=== PATIENT | male | born 1990 | race Caucasian/White ===

== ENCOUNTER 2017-11-15 11:46 | Emergency (ER) | payer OTHER ==
[2017-11-15] MEDS ORDERED: Ibuprofen 600 MG Tab PO ONE (12:20)
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
== END 2017-11-15 12:47 | disposition home or self-care (01) ==
LOC: JD.ED 11:46
DX: S16.1XXA Strain of muscle, fascia and tendon at neck level, initial encounter (principal); S46.911A Strain of unspecified muscle, fascia and tendon at shoulder and upper arm level, right arm, initial encounter; S56.912A Strain of unspecified muscles, fascia and tendons at forearm level, left arm, initial encounter; F17.210 Nicotine dependence, cigarettes, uncomplicated; V53.5XXA Driver of pick-up truck or van injured in collision with car, pick-up truck or van in traffic accident, initial encounter
CPT/HCPCS: 99284; A9270; 99283

== ENCOUNTER 2018-01-11 11:54 | Emergency (ER) | payer OTHER ==
[2018-01-11] MEDS ORDERED: Sodium Chloride 0.9% 10 ML Syringe FLUSH PRN (13:07)
[2018-01-11] MEDS ORDERED: Sodium Chloride 0.9% 1,000 ML IV ONE (13:07)
[2018-01-11] MEDS ORDERED: Iopamidol 755 Mg/ML 100 ML Bottle IVPUSH ONE (13:20)
[2018-01-11] MEDS ORDERED: Iopamidol 755 MG/ML 50 ML Bottle IVPUSH ONE (13:20)
[2018-01-11] MEDS ORDERED: Sodium Chloride 0.9% 100 ML IV SCH (13:30)
[2018-01-11] MEDS: Sodium Chloride 0.9% 10 ML Syringe FLUSH PRN ×2 (13:33→13:47)
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
--- NOTE | 2018-01-11 13:54 | CT ---
CT chest Technique: Multiple axial sections were obtained through the chest. Study performed as a pulmonary angiogram protocol and intravenous contrast was therefore utilized. Comparison: No prior chest imaging. Findings: Pulmonary arteries are well-opacified. No filling defects are seen to indicate pulmonary embolism. Aorta appears unremarkable. Mediastinum and hilar regions show no adenopathy or mass. No pericardial thickening is seen. Small portion of the visualized upper abdominal structures are within normal limits. Slight atelectasis is noted within the right middle lobe and lingula. Lungs otherwise are clear. No pleural effusions are seen. Impression: 1. Slight atelectasis as noted above. 2. No findings of pulmonary embolism. 3. No additional abnormality is identified on CT study of the chest performed as a pulmonary angiogram protocol. Diagnostic code #2
== END 2018-01-11 15:19 | disposition home or self-care (01) ==
LOC: JD.ED 11:54
DX: R07.89 Other chest pain (principal); F17.210 Nicotine dependence, cigarettes, uncomplicated
CPT/HCPCS: 36415; 36600; 71275; 80053; 82375; 82803; 83735; 84443; 84484; 85025; 93005; 96360; 96361; 99285; J7030; J7040; J7050; Q9967; 93010; 99284

== ENCOUNTER 2020-08-18 04:35 | Emergency (ER) | payer BC, OTHER ==
[2020-08-18] MEDS ORDERED: Orphenadrine 100 MG Tab.ER PO STA (05:22)
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
== END 2020-08-18 05:42 | disposition home or self-care (01) ==
LOC: JD.ED 04:35
DX: S44.92XA Injury of unspecified nerve at shoulder and upper arm level, left arm, initial encounter (principal); E66.9 Obesity, unspecified; Z68.35 Body mass index [BMI] 35.0-35.9, adult; Z87.891 Personal history of nicotine dependence; X58.XXXA Exposure to other specified factors, initial encounter
CPT/HCPCS: 99283; A9270

== ENCOUNTER 2020-11-16 21:09 | Emergency (ER) | payer BC ==
[2020-11-16] MEDS ORDERED: Sodium Chloride 0.9% 1,000 ML IV SCH (21:45)
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
[2020-11-16] MEDS ORDERED: Sodium Chloride 0.9% 10 ML Syringe FLUSH ONE (22:45)
[2020-11-16] MEDS ORDERED: Diatrizoate Meglumine/Diatrizoate Sodium 37% 120 ML Bottle PO ONE (22:45)
[2020-11-16] MEDS ORDERED: Iopamidol 612 MG/ML 50 ML SDV IVPUSH ONE (22:45)
[2020-11-16] MEDS ORDERED: Iopamidol 612 MG/ML 100 ML Bottle IVPUSH ONE (22:45)
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
== END 2020-11-17 00:24 | disposition home or self-care (01) ==
LOC: JD.ED 21:09
DX: K59.00 Constipation, unspecified (principal); E66.9 Obesity, unspecified; Z87.891 Personal history of nicotine dependence; Z68.36 Body mass index [BMI] 36.0-36.9, adult
CPT/HCPCS: 36415; 74177; 80053; 81001; 83690; 83735; 85007; 85027; 99284; J7030; Q9963; Q9967

== ENCOUNTER 2021-07-02 10:31 | Emergency (ER) | payer BC ==
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
== END 2021-07-02 12:00 | disposition home or self-care (01) ==
LOC: JD.ED 10:31
DX: H00.014 Hordeolum externum left upper eyelid (principal); E66.9 Obesity, unspecified; Z68.36 Body mass index [BMI] 36.0-36.9, adult; Z72.0 Tobacco use
CPT/HCPCS: 99283